=== PATIENT | female | born 1955 | race Caucasian/White ===

== ENCOUNTER 2020-02-24 07:39 | Day surgery (SDC) | payer OTHER, SELFPAY ==
[~2020-02-24] VITALS: Ht 160 cm; Wt 77.1 kg
[2020-02-24] MEDS ORDERED: MIDAZOLAM 2 MG/2 ML VIAL ONE (09:15)
[2020-02-24] MEDS ORDERED: fentaNYL citrate 0.05 MG/ML VIAL ONE (09:15)
[2020-02-24] MEDS ORDERED: LIDOCAINE 2% 100 MG/5 ML UJET TP ONE ×2 (09:16→14:15)
[2020-02-24] MEDS ORDERED: fentaNYL citrate 0.05 MG/ML VIAL IVP ONE (14:15)
== END 2020-02-24 10:42 | disposition home or self-care (01) ==
LOC: MDS 07:39 → MFCC 07:44 → MDS 10:42
PROVIDERS: ATTEND Internal Medicine Gastroenterology
DX: R10.30 Lower abdominal pain, unspecified (principal); K57.30 Diverticulosis of large intestine without perforation or abscess without bleeding; I10 Essential (primary) hypertension; E66.9 Obesity, unspecified; Z79.899 Other long term (current) drug therapy; Z68.31 Body mass index [BMI] 31.0-31.9, adult; Z20.828 Contact with and (suspected) exposure to other viral communicable diseases
CPT/HCPCS: 45378; J3010; U0003; J2250